=== PATIENT | female | born 1940 | race African-American/Black ===

== ENCOUNTER 2017-01-17 17:05 | Inpatient (IN) | payer MEDICARE, OTHER ==
[~2017-01-17] VITALS: Ht 167.6 cm; Wt 60.9 kg
[~2017-01-17 17:05] MED LIST: AMIT100T2 PO; AMLO10TA80 PO; CAPT100T2 PO; GABA-290 PO; GABA-531 PO; HYDR-2510 PO; HYDR-4134 PO; INSULIN; PARI1CAP PO; POTA-9 PO; PRAV40TA58 PO
[2017-01-17 18:51] LABS: BASOPHILS % 0.9 % (0.0-2.0); EOSINOPHILS % 1.4 % (0.0-5.0); HEMATOCRIT. 38.2 % (36.0-48.0); HEMOGLOBIN. 12.6 g/dL (12.0-16.0); MEAN CORPUSCULAR HEMOGLOBIN 29.7 pg (28.0-32.0); MEAN PLATELET VOLUME 9.8 fl (7.4-10.4); MONOCYTES % 10.4 % (2.0-8.0); NEUTROPHILS % 74.3 % (40.0-76.0); PLATELET 124 x1000/uL (130-400); RED BLOOD CELL COUNT 4.24 mill/uL (4.2-5.4); RED CELL DISTRIBUTION WIDTH 16.5 % (11.6-14.6)
[2017-01-17 18:58] LABS: INR 1.2; PARTIAL THROMBOPLASTIN TIME 27.5 sec (23.4-31.0); PROTHROMBIN TIME 12.2 sec (9.4-11.6)
[2017-01-17 19:05] LABS: CREATINE KINASE MB FRACTION 3.7 ng/mL (0.5-3.6); PHOSPHORUS 3.5 mg/dL (2.5-4.9); TROPONIN I 0.1 ng/mL (0.00-0.04)
[2017-01-17] MEDS ORDERED: DEXT 5%/LACTATED RINGERS 1,000 ML IV SCH ×2 (19:55→23:00)
[2017-01-17] MEDS ORDERED: IPRATROPIUM/ALBUTEROL 0.5-3(2.5)MG/3ML NEB INH PRN (20:00)
[2017-01-17] MEDS ORDERED: ONDANSETRON HCL 4MG/2ML VIAL IV PRN (20:00)
[2017-01-17] MEDS ORDERED: NICARDIPINE 50 MG in SODIUM CHLORIDE 0.9% 230 ML IV PRN ×2 (20:00→23:00)
[2017-01-17] MEDS ORDERED: DEXTROSE 50% WATER 50ML SYRINGE IV PRN (20:00)
[2017-01-17] MEDS ORDERED: ACETAMINOPHEN 325MG TABLET PO PRN (20:00)
[2017-01-17] MEDS ORDERED: DIPHENHYDRAMINE 50MG/ML VIAL IV PRN (20:00)
[2017-01-17] MEDS ORDERED: PHENYTOIN SODIUM 500 MG in SODIUM CHLORIDE 0.9% 50 ML IV ONE (20:00)
[2017-01-17] MEDS ORDERED: ONDANSETRON HCL 4MG/2ML VIAL IV ONE (20:30)
[2017-01-17] MEDS ORDERED: MORPHINE SULFATE 2 MG/ML CPJ (NOT FOR IM USE) IV ONE (20:30)
[2017-01-17] MEDS: BLOOD SUGAR DIAGNOSTIC STRIP TEST SCH (21:00)
[2017-01-17 22:25] VITALS: BP 166/73
[2017-01-17 22:45] VITALS: BP 166/73
[2017-01-17 23:00] VITALS: BP 159/75
[2017-01-17 23:15] VITALS: BP 160/67
[2017-01-17 23:30] VITALS: BP 175/71
[2017-01-17 23:45] VITALS: BP 191/87
[2017-01-18] VITALS (93 sets, daily range): BP systolic 109–181; BP diastolic 53–112
[2017-01-18] MEDS: PHENYTOIN SODIUM 100MG/2ML VIAL IV SCH ×3 (00:19→14:00)
[2017-01-18] MEDS: INSULIN LISPRO 100 UNITS/ML SUBCUT SCH ×5 (00:27→21:00)
[2017-01-18] MEDS: NICARDIPINE 50 MG in SODIUM CHLORIDE 0.9% 230 ML IV PRN ×2 (00:52→15:31)
[2017-01-18] MEDS: BLOOD SUGAR DIAGNOSTIC STRIP TEST SCH ×4 (06:30→21:00)
[2017-01-18] MEDS: MORPHINE SULFATE 4 MG/ML CPJ (NOT FOR IM USE) IV PRN ×2 (08:35→12:49)
[2017-01-18] MEDS ORDERED: PANTOPRAZOLE SODIUM 40 MG/VIAL IV SCH (09:00)
[2017-01-18] MEDS: LISINOPRIL 40MG TABLET PO SCH (16:57)
[2017-01-18] MEDS: AMLODIPINE 10MG TABLET PO SCH (16:57)
[2017-01-18] MEDS ORDERED: TRAMADOL 50MG TABLET PO PRN (19:45)
[2017-01-18] MEDS: CLONIDINE 0.1MG TABLET PO PRN (20:39)
[2017-01-18] MEDS ORDERED: HYDROCODONE/APAP 7.5/325MG 1 TAB TABLET PO PRN (21:45)
[2017-01-18] MEDS: HYDRALAZINE HCL 50MG TABLET PO SCH (22:00)
[2017-01-18] MEDS: PHENYTOIN SODIUM EXTENDED 100MG CAPSULE PO SCH (22:00)
[2017-01-19] VITALS (28 sets, daily range): BP systolic 113–166; BP diastolic 47–79
[2017-01-19] MEDS: CLONIDINE 0.1MG TABLET PO PRN (02:16)
[2017-01-19] MEDS: PHENYTOIN SODIUM EXTENDED 100MG CAPSULE PO SCH ×3 (05:38→23:05)
[2017-01-19] MEDS: HYDRALAZINE HCL 50MG TABLET PO SCH ×3 (05:38→23:06)
[2017-01-19] MEDS: BLOOD SUGAR DIAGNOSTIC STRIP TEST SCH ×4 (05:38→21:00)
[2017-01-19 06:02] LABS: BASOPHILS % 0.5 % (0.0-2.0); EOSINOPHILS % 2.1 % (0.0-5.0); HEMATOCRIT. 33.6 % (36.0-48.0); LYMPHOCYTES % 21.6 % (20.0-50.0); MEAN CORPUSCULAR HEMOGLOBIN 29.4 pg (28.0-32.0); MEAN CORPUSCULAR VOLUME 90.1 fL (81.0-99.0); MONOCYTES % 12.3 % (2.0-8.0); NEUTROPHILS % 63.5 % (40.0-76.0); PLATELET 91 x1000/uL (130-400); RED BLOOD CELL COUNT 3.73 mill/uL (4.2-5.4)
[2017-01-19] MEDS: INSULIN LISPRO 100 UNITS/ML SUBCUT SCH ×4 (06:15→21:00)
[2017-01-19 06:48] LABS: PHOSPHORUS 2.2 mg/dL (2.5-4.9)
[2017-01-19] MEDS ORDERED: SORBITOL 70% SOLN 30ML PO PRN (09:00)
[2017-01-19] MEDS: DOCUSATE SODIUM 100MG CAPSULE PO SCH ×2 (09:00→17:35)
[2017-01-19] MEDS: LISINOPRIL 40MG TABLET PO SCH (09:11)
[2017-01-19] MEDS: AMLODIPINE 10MG TABLET PO SCH (09:11)
[2017-01-19] MEDS: PANTOPRAZOLE 40MG DR TABLET PO SCH (10:17)
[2017-01-19] MEDS: ACETAMINOPHEN WITH CODEINE 300/30MG TABLET PO PRN ×2 (10:18→17:36)
[2017-01-20] VITALS: BP 152/51
[2017-01-20] MEDS: MORPHINE SULFATE 4 MG/ML CPJ (NOT FOR IM USE) IV PRN ×4 (01:05→20:29)
[2017-01-20 04:00] VITALS: BP 146/60
[2017-01-20] MEDS: HYDRALAZINE HCL 50MG TABLET PO SCH ×3 (06:00→21:14)
[2017-01-20 06:33] LABS: BASOPHILS % 0.5 % (0.0-2.0); EOSINOPHILS % 2.6 % (0.0-5.0); HEMATOCRIT. 35.7 % (36.0-48.0); HEMOGLOBIN. 11.8 g/dL (12.0-16.0); LYMPHOCYTES % 17.7 % (20.0-50.0); MEAN CORPUSCULAR HEMOGLOBIN 29.6 pg (28.0-32.0); MEAN PLATELET VOLUME 9.2 fl (7.4-10.4); MONOCYTES % 13.8 % (2.0-8.0); NEUTROPHILS % 65.4 % (40.0-76.0); PLATELET 100 x1000/uL (130-400); RED BLOOD CELL COUNT 3.97 mill/uL (4.2-5.4)
[2017-01-20] MEDS: PHENYTOIN SODIUM EXTENDED 100MG CAPSULE PO SCH ×3 (06:51→21:14)
[2017-01-20] MEDS: PANTOPRAZOLE 40MG DR TABLET PO SCH (06:51)
[2017-01-20] MEDS: BLOOD SUGAR DIAGNOSTIC STRIP TEST SCH ×4 (06:55→20:30)
[2017-01-20] MEDS: INSULIN LISPRO 100 UNITS/ML SUBCUT SCH ×4 (06:56→20:35)
[2017-01-20 07:03] LABS: PHOSPHORUS 2.7 mg/dL (2.5-4.9)
[2017-01-20 08:00] VITALS: BP 163/60
[2017-01-20] MEDS: AMLODIPINE 10MG TABLET PO SCH (08:47)
[2017-01-20] MEDS: LISINOPRIL 40MG TABLET PO SCH (08:47)
[2017-01-20] MEDS: DOCUSATE SODIUM 100MG CAPSULE PO SCH ×2 (08:47→17:03)
[2017-01-20 12:00] VITALS: BP 161/68
[2017-01-20 16:00] VITALS: BP 160/65
[2017-01-20 20:00] VITALS: BP 169/60
[2017-01-21] VITALS: BP 157/56
[2017-01-21 04:00] VITALS: BP 183/70
[2017-01-21 05:44] LABS: HEMATOCRIT. 37.2 % (36.0-48.0); HEMOGLOBIN. 12.3 g/dL (12.0-16.0); MEAN CORPUSCULAR HEMOGLOBIN 29.7 pg (28.0-32.0); MEAN CORPUSCULAR VOLUME 89.5 fL (81.0-99.0); MEAN PLATELET VOLUME 9.9 fl (7.4-10.4); PLATELET 102 x1000/uL (130-400); RED BLOOD CELL COUNT 4.16 mill/uL (4.2-5.4)
[2017-01-21] MEDS: PHENYTOIN SODIUM EXTENDED 100MG CAPSULE PO SCH ×3 (06:41→16:48)
[2017-01-21] MEDS: CLONIDINE 0.1MG TABLET PO PRN (06:48)
[2017-01-21] MEDS: HYDRALAZINE HCL 50MG TABLET PO SCH ×2 (06:48→14:00)
[2017-01-21] MEDS: BLOOD SUGAR DIAGNOSTIC STRIP TEST SCH ×2 (06:49→12:18)
[2017-01-21 06:57] LABS: PHOSPHORUS 2.3 mg/dL (2.5-4.9)
[2017-01-21] MEDS: INSULIN LISPRO 100 UNITS/ML SUBCUT SCH ×2 (07:50→12:31)
[2017-01-21 08:00] VITALS: BP 153/57
[2017-01-21] MEDS: DOCUSATE SODIUM 100MG CAPSULE PO SCH (08:36)
[2017-01-21] MEDS: AMLODIPINE 10MG TABLET PO SCH (08:36)
[2017-01-21] MEDS: LISINOPRIL 40MG TABLET PO SCH (08:36)
[2017-01-21] MEDS ORDERED: FAMOTIDINE 20MG TABLET PO SCH (09:00)
[2017-01-21 10:44] LABS: PLATELET ESTIMATE DECREASED
[2017-01-21 12:00] VITALS: BP 152/60
[2017-01-21 15:15] VITALS: BP 137/52
[2017-01-21 16:00] VITALS: BP 152/61
== END 2017-01-21 17:00 | disposition home or self-care (01) | DRG 85 ==
LOC: SUPCPDRO 19:54 → ER 20:15 → ENRESERV 21:06 → MICUSO 22:25 → 6EST 01-19 14:26
PROVIDERS: ADMIT Internal Medicine; ATTEND Internal Medicine
PROC: 5A1D60Z (ICD-10-PCS; principal; 2017-01-18)
DX: S06.350A Traumatic hemorrhage of left cerebrum without loss of consciousness, initial encounter (principal); J96.01 Acute respiratory failure with hypoxia; J90 Pleural effusion, not elsewhere classified; N25.81 Secondary hyperparathyroidism of renal origin; N18.6 End stage renal disease; I12.0 Hypertensive chronic kidney disease with stage 5 chronic kidney disease or end stage renal disease; M48.02 Spinal stenosis, cervical region; E11.22 Type 2 diabetes mellitus with diabetic chronic kidney disease; E11.42 Type 2 diabetes mellitus with diabetic polyneuropathy; S06.300A Unspecified focal traumatic brain injury without loss of consciousness, initial encounter; W01.0XXA Fall on same level from slipping, tripping and stumbling without subsequent striking against object, initial encounter; S00.03XA Contusion of scalp, initial encounter; D64.9 Anemia, unspecified; R40.2410 Glasgow coma scale score 13-15, unspecified time; R23.3 Spontaneous ecchymoses; E04.2 Nontoxic multinodular goiter; E11.65 Type 2 diabetes mellitus with hyperglycemia; E78.00 Pure hypercholesterolemia, unspecified; E78.5 Hyperlipidemia, unspecified; Z79.899 Other long term (current) drug therapy; Z99.2 Dependence on renal dialysis; Z90.710 Acquired absence of both cervix and uterus; Z90.49 Acquired absence of other specified parts of digestive tract; Z79.4 Long term (current) use of insulin; Y93.89 Activity, other specified; Y92.89 Other specified places as the place of occurrence of the external cause; Y99.8 Other external cause status; Z79.82 Long term (current) use of aspirin
CPT/HCPCS: 36415; 70450; 71010; 72125; 73502; 80048; 80061; 82553; 82962; 83036; 83735; 84100; 84484; 85025; 85610; 85730; 93005; 93970; 96374; 96375; 97116; 97162; 99291; C1893; C9113; J1165; J1815; J2270; J2405; J3490; J7030; J7040; J7050

== ENCOUNTER 2020-06-25 22:42 | Inpatient (IN) | payer OTHER ==
[~2020-06-25] VITALS: Ht 162.6 cm; Wt 75.0 kg
[~2020-06-25 22:42] MED LIST changes: -GABA-531 PO; +GABA-532 PO; -HYDR-2510 PO; +HYDR50TA PO
[2020-06-25] MEDS ORDERED: MORPHINE SULFATE 4 MG/ML CPJ (NOT FOR IM USE) IV STA (23:37)
[2020-06-25] MEDS ORDERED: ONDANSETRON HCL 4MG/2ML INJ IV STA (23:37)
[2020-06-25 23:52] LABS: BASOPHILS % 0.8 % (0.0-2.0); EOSINOPHILS % 0.2 % (0.0-5.0); HEMATOCRIT. 31.3 % (36.0-48.0); HEMOGLOBIN. 9.9 g/dL (12.0-16.0); LYMPHOCYTES % 9.9 % (20.0-50.0); MEAN CORPUSCULAR HEMOGLOBIN 29.7 pg (28.0-32.0); MEAN CORPUSCULAR VOLUME 93.6 fL (81.0-99.0); MEAN PLATELET VOLUME 9.9 fl (7.4-10.4); MONOCYTES % 8.7 % (2.0-8.0); NEUTROPHILS % 80.4 % (40.0-76.0); PLATELET 232 x1000/uL (130-400); RED BLOOD CELL COUNT 3.35 mill/uL (4.2-5.4); RED CELL DISTRIBUTION WIDTH 18.7 % (11.6-14.6)
[2020-06-25 23:54] LABS: CHLORIDE 100 mEq/L (98-107)
[2020-06-26] MEDS ORDERED: CALCIUM CHLORIDE 1GM/10ML SYR IV SCH (00:30)
[2020-06-26] MEDS ORDERED: INSULIN REGULAR (HUMULIN R) 300UNITS/3ML VIAL IV SCH (00:30)
[2020-06-26] MEDS ORDERED: SODIUM BICARBONATE 8.4% 1 MEQ/ML 50ML SYR IV SCH (00:30)
[2020-06-26] MEDS ORDERED: DEXTROSE 50% WATER 50ML SYRINGE IV SCH (00:30)
[2020-06-26] MEDS ORDERED: DEXTROSE 50% WATER 50ML SYRINGE IV PRN (09:00)
[2020-06-26] MEDS: BLOOD SUGAR DIAGNOSTIC STRIP TEST SCH ×4 (09:00→21:00)
[2020-06-26] MEDS ORDERED: ONDANSETRON HCL 4MG/2ML INJ IV PRN (09:00)
[2020-06-26] MEDS ORDERED: ACETAMINOPHEN 325MG TABLET PO PRN (09:00)
[2020-06-26 10:30] VITALS: BP 142/62
[2020-06-26] MEDS: NIFEDIPINE XL 60MG TAB PO SCH (11:00)
[2020-06-26 12:00] VITALS: BP 207/81
[2020-06-26] MEDS: INSULIN LISPRO 100 UNITS/ML SUBCUT SCH ×3 (12:50→22:06)
[2020-06-26] MEDS ORDERED: HYDRALAZINE HCL 100MG TABLET PO ONE (13:45)
[2020-06-26] MEDS ORDERED: BENZONATATE 100MG CAPSULE PO PRN (14:00)
[2020-06-26] MEDS: HYDRALAZINE HCL 100MG TABLET PO SCH ×2 (14:23→22:00)
[2020-06-26] MEDS: METOCLOPRAMIDE HCL 10MG/2ML VIAL IV SCH ×2 (17:41→23:44)
[2020-06-26] MEDS ORDERED: HYDROCODONE/ACETAMINOPHEN 5/325MG TABLET PO PRN (19:45)
[2020-06-26 20:58] LABS: INR 1.2; PARTIAL THROMBOPLASTIN TIME 24.5 sec (23.4-31.0); PROTHROMBIN TIME 12.4 sec (9.6-11.0)
[2020-06-27] VITALS (7 sets, daily range): BP systolic 123–161; BP diastolic 57–89
[2020-06-27] MEDS: METOCLOPRAMIDE HCL 10MG/2ML VIAL IV SCH ×4 (06:05→23:26)
[2020-06-27] MEDS: HYDRALAZINE HCL 100MG TABLET PO SCH ×3 (06:05→21:33)
[2020-06-27] MEDS: BLOOD SUGAR DIAGNOSTIC STRIP TEST SCH ×4 (06:05→21:32)
[2020-06-27] MEDS: INSULIN LISPRO 100 UNITS/ML SUBCUT SCH ×4 (07:27→21:42)
[2020-06-27 07:54] LABS: BASOPHILS % 0.3 % (0.0-2.0); EOSINOPHILS % 0.4 % (0.0-5.0); HEMATOCRIT. 27.2 % (36.0-48.0); HEMOGLOBIN. 8.8 g/dL (12.0-16.0); LYMPHOCYTES % 7.3 % (20.0-50.0); MEAN CORPUSCULAR HEMOGLOBIN 29.8 pg (28.0-32.0); MEAN CORPUSCULAR VOLUME 92.2 fL (81.0-99.0); MEAN PLATELET VOLUME 8.7 fl (7.4-10.4); MONOCYTES % 9.2 % (2.0-8.0); NEUTROPHILS % 82.8 % (40.0-76.0); PLATELET 161 x1000/uL (130-400); RED BLOOD CELL COUNT 2.95 mill/uL (4.2-5.4); RED CELL DISTRIBUTION WIDTH 18.7 % (11.6-14.6)
[2020-06-27] MEDS: NIFEDIPINE XL 60MG TAB PO SCH (08:10)
[2020-06-27 08:22] LABS: PHOSPHORUS 3.3 mg/dL (2.5-4.9)
[2020-06-27] MEDS: NICOTINE 14MG PATCH TD SCH ×2 (09:00→09:10)
[2020-06-27] MEDS: RISPERIDONE 0.5MG TABLET PO SCH (12:24)
[2020-06-27] MEDS: LORAZEPAM 2MG/ML CPJ IV PRN ×2 (12:25→21:33)
[2020-06-27] MEDS ORDERED: IPRATROPIUM/ALBUTEROL 0.5-3(2.5)MG/3ML NEB HHN PRN (16:15)
[2020-06-27] MEDS ORDERED: EPOETIN ALFA-EPBX 4,000 UNIT/ML VIAL SUBCUT SCH (21:00)
[2020-06-28] VITALS (7 sets, daily range): BP systolic 20–157; BP diastolic 50–139
[2020-06-28] MEDS: METOCLOPRAMIDE HCL 10MG/2ML VIAL IV SCH (05:36)
[2020-06-28] MEDS: HYDRALAZINE HCL 100MG TABLET PO SCH ×3 (05:36→20:57)
[2020-06-28] MEDS: BLOOD SUGAR DIAGNOSTIC STRIP TEST SCH ×4 (05:36→20:37)
[2020-06-28] MEDS: INSULIN LISPRO 100 UNITS/ML SUBCUT SCH ×4 (05:38→20:37)
[2020-06-28] MEDS: NIFEDIPINE XL 60MG TAB PO SCH (08:27)
[2020-06-28] MEDS: RISPERIDONE 0.5MG TABLET PO SCH (08:27)
[2020-06-28] MEDS: LORAZEPAM 2MG/ML CPJ IV PRN (08:27)
[2020-06-28] MEDS: NICOTINE 14MG PATCH TD SCH (08:28)
[2020-06-28 09:06] LABS: CHLORIDE 101 mEq/L (98-107)
[2020-06-28 09:11] LABS: PHOSPHORUS 3.3 mg/dL (2.5-4.9)
[2020-06-28 09:58] LABS: BASOPHILS % 0.3 % (0.0-2.0); EOSINOPHILS % 0.3 % (0.0-5.0); HEMATOCRIT. 28.3 % (36.0-48.0); HEMOGLOBIN. 9.1 g/dL (12.0-16.0); LYMPHOCYTES % 8.4 % (20.0-50.0); MEAN CORPUSCULAR HEMOGLOBIN 29.9 pg (28.0-32.0); MEAN CORPUSCULAR VOLUME 93.3 fL (81.0-99.0); MEAN PLATELET VOLUME 8.7 fl (7.4-10.4); MONOCYTES % 7.6 % (2.0-8.0); NEUTROPHILS % 83.4 % (40.0-76.0); PLATELET 165 x1000/uL (130-400); RED BLOOD CELL COUNT 3.03 mill/uL (4.2-5.4); RED CELL DISTRIBUTION WIDTH 19.4 % (11.6-14.6)
[2020-06-28] MEDS ORDERED: LORAZEPAM 1MG TABLET PO PRN (11:45)
[2020-06-28] MEDS: METOCLOPRAMIDE HCL 5MG TABLET PO SCH ×2 (12:08→17:09)
== END 2020-06-29 00:10 | disposition home or self-care (01) | DRG 640 ==
LOC: ER 22:42 → 7WST 06-26 00:46 → ENRESERV 06-26 07:58 → 5WST 06-27 08:32
PROVIDERS: ADMIT Internal Medicine; ATTEND Internal Medicine
PROC: 5A1D70Z Performance of Urinary Filtration, Intermittent, Less than 6 Hours Per Day (ICD-10-PCS; 2020-06-26)
PROC: 5A1D70Z Performance of Urinary Filtration, Intermittent, Less than 6 Hours Per Day (ICD-10-PCS; principal; 2020-06-27)
PROC: 5A1D70Z Performance of Urinary Filtration, Intermittent, Less than 6 Hours Per Day (ICD-10-PCS; 2020-06-28)
DX: E87.5 Hyperkalemia (principal); J96.90 Respiratory failure, unspecified, unspecified whether with hypoxia or hypercapnia; N18.6 End stage renal disease; R18.8 Other ascites; I13.2 Hypertensive heart and chronic kidney disease with heart failure and with stage 5 chronic kidney disease, or end stage renal disease; E44.0 Moderate protein-calorie malnutrition; E87.70 Fluid overload, unspecified; E87.1 Hypo-osmolality and hyponatremia; E87.2 Acidosis; E11.22 Type 2 diabetes mellitus with diabetic chronic kidney disease; I50.9 Heart failure, unspecified; N20.0 Calculus of kidney; K21.9 Gastro-esophageal reflux disease without esophagitis; D64.9 Anemia, unspecified; R77.8 Other specified abnormalities of plasma proteins; E11.42 Type 2 diabetes mellitus with diabetic polyneuropathy; Z20.822 Contact with and (suspected) exposure to COVID-19; Z79.899 Other long term (current) drug therapy; Z68.28 Body mass index [BMI] 28.0-28.9, adult; Z90.710 Acquired absence of both cervix and uterus; Z91.15 Patient's noncompliance with renal dialysis; Z91.19 Patient's noncompliance with other medical treatment and regimen; Z99.2 Dependence on renal dialysis; Z87.442 Personal history of urinary calculi; Z82.49 Family history of ischemic heart disease and other diseases of the circulatory system
CPT/HCPCS: 36415; 71045; 74176; 76705; 80048; 80053; 82962; 83605; 83880; 84100; 84145; 84484; 85025; 93005; 99291; C1893; J0885; J1815; J2060; J2270; J2405; J2765; J3490; J8597; U0003

== ENCOUNTER 2020-07-02 09:25 | Inpatient (IN) | payer OTHER ==
[~2020-07-02] VITALS: Ht 152.4 cm; Wt 68.9 kg
[~2020-07-02 09:25] MED LIST changes: -HYDR50TA PO; -INSULIN; -POTA-9 PO
[2020-07-02 10:16] LABS: HEMATOCRIT. 28.4 % (36.0-48.0); HEMOGLOBIN. 9.1 g/dL (12.0-16.0); MEAN CORPUSCULAR HEMOGLOBIN 29.3 pg (28.0-32.0); MEAN CORPUSCULAR VOLUME 91.9 fL (81.0-99.0); MEAN PLATELET VOLUME 9.1 fl (7.4-10.4); PLATELET 138 x1000/uL (130-400); RED BLOOD CELL COUNT 3.09 mill/uL (4.2-5.4); RED CELL DISTRIBUTION WIDTH 18.7 % (11.6-14.6)
[2020-07-02 10:23] LABS: CHLORIDE 96 mEq/L (98-107)
[2020-07-02 10:42] LABS: INR 1.2; PROTHROMBIN TIME 12.7 sec (9.6-11.0)
[2020-07-02] MEDS ORDERED: DEXTROSE 50% WATER 50ML SYRINGE IV ONE (11:00)
[2020-07-02] MEDS ORDERED: ALBUTEROL (0.083%) 2.5MG/3ML NEB HHN ONE (11:00)
[2020-07-02] MEDS ORDERED: CALCIUM CHLORIDE 1GM/10ML SYR IV ONE (11:00)
[2020-07-02] MEDS ORDERED: SODIUM BICARBONATE 8.4% 1 MEQ/ML 50ML SYR IV ONE (11:00)
[2020-07-02] MEDS ORDERED: INSULIN REGULAR (HUMULIN R) 300UNITS/3ML VIAL IV ONE (11:00)
[2020-07-02 11:24] LABS: PLATELET ESTIMATE NORMAL
[2020-07-02] MEDS ORDERED: AMLODIPINE 10MG TABLET PO ONE (11:45)
[2020-07-02] MEDS ORDERED: VANCOMYCIN 1 G PREMIX 200 ML IV ONE (11:45)
[2020-07-02] MEDS ORDERED: PIPERACILLIN/TAZ 3.375G PREMIX 50 ML IV ONE (11:45)
[2020-07-02] MEDS ORDERED: PIPERACILLIN/TAZ 3.375G PREMIX 50 ML IV SCH (12:30)
[2020-07-02] MEDS ORDERED: DOCUSATE SODIUM 100MG CAPSULE PO PRN (12:30)
[2020-07-02] MEDS ORDERED: ACETAMINOPHEN 325MG TABLET PO PRN (12:30)
[2020-07-02] MEDS ORDERED: MAGNESIUM/ALUMINUM HYDROXIDE/SIMETHICONE 30ML UDC PO PRN (12:30)
[2020-07-02] MEDS ORDERED: IPRATROPIUM/ALBUTEROL 0.5-3(2.5)MG/3ML NEB NEB PRN (12:30)
[2020-07-02] MEDS ORDERED: NITROGLYCERIN 0.4MG TABLET SL SL PRN (12:30)
[2020-07-02] MEDS ORDERED: TRAMADOL 50MG TABLET PO PRN (12:30)
[2020-07-02] MEDS ORDERED: AMLODIPINE 10MG TABLET PO SCH (12:30)
[2020-07-02 12:59] LABS: CLARITY URINE CLEAR (CLEAR); COLOR URINE ORANGE (YELLOW); KETONES URINE TRACE (NEGATIVE); LEUKOCYTE ESTERASE URINE TRACE (NEGATIVE); NITRITE URINE NEGATIVE (NEGATIVE); OCCULT BLOOD URINE 3+ (NEGATIVE); PH URINE 8.5 (4.5-8.0); PROTEIN URINE NEGATIVE (NEGATIVE); SPECIFIC GRAVITY URINE 1.007 (1.005-1.030)
[2020-07-02] MEDS ORDERED: SEVELAMER CARBONATE 800 MG TABLET PO SCH (13:00)
[2020-07-02] MEDS ORDERED: SODIUM POLYSTYRENE SULFONATE 15 G/60 ML BOT PO NR (13:00)
[2020-07-02] MEDS: ENOXAPARIN 30MG/0.3ML SYR SUBCUT SCH (13:49)
[2020-07-02] MEDS: HYDRALAZINE HCL 50MG TABLET PO SCH ×2 (13:50→21:00)
[2020-07-02] MEDS ORDERED: AMIT100T2 PO (15:57)
[2020-07-02] MEDS ORDERED: PRAV40TA58 PO (15:57)
[2020-07-02] MEDS ORDERED: CAPT100T2 PO (15:57)
[2020-07-02] MEDS ORDERED: AMLO10TA80 PO (15:57)
[2020-07-02] MEDS ORDERED: HYDR-4134 PO (15:57)
[2020-07-02] MEDS ORDERED: GABA-532 PO (15:57)
[2020-07-02] MEDS ORDERED: PARI1CAP3 PO (15:57)
[2020-07-02] MEDS ORDERED: HALOPERIDOL LACTATE 5MG/ML VIAL IM NR (16:27)
[2020-07-02 17:00] VITALS: BP_SYST 185; BP_SYST 196; BP_DIAS 74; BP_DIAS 87
[2020-07-02] MEDS: CLONIDINE 0.1MG TABLET PO PRN (17:20)
[2020-07-02] MEDS: NICOTINE 14MG PATCH TD SCH (17:33)
[2020-07-02] MEDS: METOCLOPRAMIDE HCL 5MG TABLET PO SCH ×2 (17:34→22:26)
[2020-07-02] MEDS: BLOOD SUGAR DIAGNOSTIC STRIP TEST SCH ×3 (17:36→21:00)
[2020-07-02] MEDS: MORPHINE SULFATE 2 MG/ML CPJ (NOT FOR IM USE) IV PRN (17:50)
[2020-07-02] MEDS: INSULIN LISPRO 100 UNITS/ML SUBCUT SCH ×3 (17:57→21:00)
[2020-07-02 20:00] VITALS: BP 178/68
[2020-07-02] MEDS: ONDANSETRON HCL 4MG/2ML INJ IV PRN (20:24)
[2020-07-02] MEDS: ZOLPIDEM TARTRATE 5MG TABLET PO PRN (20:24)
[2020-07-02] MEDS: DIPHENHYDRAMINE 50MG/ML VIAL IV PRN (20:24)
[2020-07-02] MEDS: FAMOTIDINE 20MG TABLET PO SCH (21:00)
[2020-07-02] MEDS ORDERED: METOPROLOL TARTRATE 25MG TABLET PO SCH (21:00)
[2020-07-02 21:31] LABS: CREATINE KINASE MB FRACTION 3.5 ng/mL (0.5-3.6)
[2020-07-02 22:00] VITALS: BP 146/88
[2020-07-02] MEDS ORDERED: INSULIN GLARGINE UD 100 UNITS/ML SYR SUBCUT SCH (22:00)
[2020-07-02] MEDS: EPOETIN ALFA-EPBX 4,000 UNIT/ML VIAL SUBCUT SCH (22:26)
[2020-07-02] MEDS: ASCORBIC ACID 500 MG TABLET PO SCH (22:26)
[2020-07-02] MEDS: PIPERACILLIN/TAZOBACTAM 2.25 G in DEXTROSE 5% WATER 50 ML IV SCH (23:11)
[2020-07-03] VITALS (58 sets, daily range): BP systolic 71–200; BP diastolic 40–109
[2020-07-03] MEDS: DIPHENHYDRAMINE 50MG/ML VIAL IV PRN (00:43)
[2020-07-03 01:29] LABS: CREATINE KINASE MB FRACTION 2.1 ng/mL (0.5-3.6)
[2020-07-03] MEDS: ONDANSETRON HCL 4MG/2ML INJ IV PRN (02:05)
[2020-07-03] MEDS: MORPHINE SULFATE 2 MG/ML CPJ (NOT FOR IM USE) IV PRN ×4 (02:06→08:21)
[2020-07-03] MEDS ORDERED: EPINEPHRINE 0.1MG/ML (1:10,000) 10ML SYR ONE (02:20)
[2020-07-03] MEDS ORDERED: SODIUM BICARBONATE 8.4% 1 MEQ/ML 50ML SYR IV ONE (02:20)
[2020-07-03] MEDS ORDERED: CALCIUM CHLORIDE 1GM/10ML SYR IV ONE (02:20)
[2020-07-03] MEDS ORDERED: DEXTROSE 50% WATER 50ML SYRINGE IV ONE (02:20)
[2020-07-03 03:50] LABS: BG BASE EXCESS 1.1 mmol/L (-2.0-2.0); BG CARBOXYHEMOGLOBIN 0.1 % (0.5-1.5); BG DEOXYHEMOGLOBIN 0.6 % (0.0-5.0); BG FRACTION INSPIRED OXYGEN 100; BG HCO3 ACT 26.9 mmol/L (22.0-26.0); BG METHEMOGLOBIN 0.1 % (0.0-1.5); BG OXYGEN SATURATION 99.4 % (92.0-98.5); BG OXYHEMOGLOBIN 99.2 % (94.0-97.0); BG PCO2 48.2 mmHg (35.0-45.0); BG PH 7.364 (7.350-7.450); BG PO2 262.9 mmHg (75.0-100.0); BG SAMPLE SITE RIGHT RADIAL; BG TOTAL HEMOGLOBIN 10.4 g/dL (12.0-18.0); BG VENT MODE VENT - AC
[2020-07-03] MEDS: NOREPINEPHRINE 8 MG in DEXT 5% WATER 242 ML IV PRN ×2 (04:40→04:44)
[2020-07-03] MEDS: PROPOFOL 10MG/ML 100ML 100 ML IV PRN (04:43)
[2020-07-03] MEDS: HYDRALAZINE HCL 50MG TABLET PO SCH (06:00)
[2020-07-03] MEDS: PIPERACILLIN/TAZOBACTAM 2.25 G in DEXTROSE 5% WATER 50 ML IV SCH ×3 (06:45→19:35)
[2020-07-03 07:21] LABS: HEMATOCRIT. 26.8 % (36.0-48.0); HEMOGLOBIN. 8.5 g/dL (12.0-16.0); MEAN CORPUSCULAR HEMOGLOBIN 28.8 pg (28.0-32.0); MEAN CORPUSCULAR VOLUME 90.8 fL (81.0-99.0); MEAN PLATELET VOLUME 8.9 fl (7.4-10.4); PLATELET 130 x1000/uL (130-400); RED BLOOD CELL COUNT 2.95 mill/uL (4.2-5.4); RED CELL DISTRIBUTION WIDTH 18.3 % (11.6-14.6)
[2020-07-03 07:29] LABS: CHLORIDE 100 mEq/L (98-107)
[2020-07-03 07:37] LABS: PHOSPHORUS 4.1 mg/dL (2.5-4.9)
[2020-07-03] MEDS: INSULIN LISPRO 100 UNITS/ML SUBCUT SCH ×4 (08:00→21:00)
[2020-07-03] MEDS: DEXTROSE 50% WATER 50ML SYRINGE IV PRN ×3 (08:04→21:14)
[2020-07-03] MEDS: METOCLOPRAMIDE HCL 5MG TABLET PO SCH ×4 (08:08→21:14)
[2020-07-03] MEDS: CHOLECALCIFEROL (D3) 1000 UNIT TABLET PO SCH (08:08)
[2020-07-03] MEDS: NICOTINE 14MG PATCH TD SCH (08:08)
[2020-07-03] MEDS: BLOOD SUGAR DIAGNOSTIC STRIP TEST SCH ×4 (08:09→21:13)
[2020-07-03] MEDS: ENOXAPARIN 30MG/0.3ML SYR SUBCUT SCH (08:21)
[2020-07-03] MEDS: ASCORBIC ACID 500 MG TABLET PO SCH ×2 (08:21→21:14)
[2020-07-03] MEDS ORDERED: NIFEDIPINE XL 60MG TAB PO SCH (09:00)
[2020-07-03] MEDS ORDERED: ZINC SULFATE 220 MG ( 50 ) CAPSULE PO SCH (09:00)
[2020-07-03 09:54] LABS: BG BASE EXCESS 0.1 mmol/L (-2.0-2.0); BG CARBOXYHEMOGLOBIN 0.7 % (0.5-1.5); BG DEOXYHEMOGLOBIN 10.3 % (0.0-5.0); BG FRACTION INSPIRED OXYGEN 50; BG HCO3 ACT 24.6 mmol/L (22.0-26.0); BG METHEMOGLOBIN 0.3 % (0.0-1.5); BG OXYGEN SATURATION 89.6 % (92.0-98.5); BG OXYHEMOGLOBIN 88.7 % (94.0-97.0); BG PCO2 38.9 mmHg (35.0-45.0); BG PH 7.418 (7.350-7.450); BG PO2 61.2 mmHg (75.0-100.0); BG SAMPLE SITE RIGHT RADIAL; BG VENT MODE VENT - AC
[2020-07-03] MEDS ORDERED: VANCOMYCIN 1 G PREMIX 200 ML IV SCH (10:00)
[2020-07-03] MEDS ORDERED: DEXT 10%/0.9% NACL 1,000 ML IV SCH (11:00)
[2020-07-03] MEDS: SODIUM CHLORIDE 23.4% 154 MEQ in DEXT 10% WATER 1,000 ML IV SCH (13:05)
[2020-07-03 13:07] LABS: NUCLEATED RED BLOOD CELLS 1 /100 WBC; PLATELET ESTIMATE NORMAL
[2020-07-03] MEDS: FAMOTIDINE 20MG TABLET PO SCH (21:14)
[2020-07-03] MEDS ORDERED: FENTANYL CITRATE/PF 2,500 MCG in SODIUM CHLORIDE 0.9% 200 ML IV PRN (22:15)
[2020-07-04] VITALS (44 sets, daily range): BP systolic 113–201; BP diastolic 47–156
[2020-07-04] MEDS: PROPOFOL 10MG/ML 100ML 100 ML IV PRN (02:49)
[2020-07-04] MEDS: PIPERACILLIN/TAZOBACTAM 2.25 G in DEXTROSE 5% WATER 50 ML IV SCH ×3 (04:44→18:28)
[2020-07-04 06:03] LABS: CHLORIDE 99 mEq/L (98-107)
[2020-07-04 06:11] LABS: PHOSPHORUS 3.9 mg/dL (2.5-4.9)
[2020-07-04 06:15] LABS: HEMATOCRIT. 23.6 % (36.0-48.0); HEMOGLOBIN. 7.7 g/dL (12.0-16.0); MEAN CORPUSCULAR HEMOGLOBIN 29.5 pg (28.0-32.0); MEAN CORPUSCULAR VOLUME 90.1 fL (81.0-99.0); MEAN PLATELET VOLUME 9.3 fl (7.4-10.4); PLATELET 128 x1000/uL (130-400); RED BLOOD CELL COUNT 2.62 mill/uL (4.2-5.4); RED CELL DISTRIBUTION WIDTH 18.1 % (11.6-14.6)
[2020-07-04] MEDS: BLOOD SUGAR DIAGNOSTIC STRIP TEST SCH ×4 (06:38→21:16)
[2020-07-04] MEDS: METOCLOPRAMIDE HCL 5MG TABLET PO SCH ×4 (06:42→21:11)
[2020-07-04] MEDS: DEXTROSE 50% WATER 50ML SYRINGE IV PRN (06:49)
[2020-07-04] MEDS: INSULIN LISPRO 100 UNITS/ML SUBCUT SCH ×4 (08:00→21:00)
[2020-07-04] MEDS: ASCORBIC ACID 500 MG TABLET PO SCH ×2 (08:54→21:09)
[2020-07-04] MEDS: CHOLECALCIFEROL (D3) 1000 UNIT TABLET PO SCH (08:54)
[2020-07-04] MEDS: NICOTINE 14MG PATCH TD SCH (08:55)
[2020-07-04] MEDS: ENOXAPARIN 30MG/0.3ML SYR SUBCUT SCH (09:04)
[2020-07-04 10:12] LABS: BG BASE EXCESS 3.8 mmol/L (-2.0-2.0); BG CARBOXYHEMOGLOBIN 0.8 % (0.5-1.5); BG DEOXYHEMOGLOBIN 1.2 % (0.0-5.0); BG FRACTION INSPIRED OXYGEN 50; BG HCO3 ACT 28.3 mmol/L (22.0-26.0); BG METHEMOGLOBIN 0.3 % (0.0-1.5); BG OXYGEN SATURATION 98.8 % (92.0-98.5); BG OXYHEMOGLOBIN 97.7 % (94.0-97.0); BG PCO2 42.5 mmHg (35.0-45.0); BG PH 7.441 (7.350-7.450); BG SAMPLE SITE RIGHT RADIAL; BG TOTAL HEMOGLOBIN 8.7 g/dL (12.0-18.0); BG VENT MODE VENT - AC
[2020-07-04 12:10] LABS: NUCLEATED RED BLOOD CELLS 1 /100 WBC
[2020-07-04 12:11] LABS: PLATELET ESTIMATE SLIGHTLY DECREASED
[2020-07-04] MEDS ORDERED: MAGNESIUM 2 G PREMIX 50 ML IV NR (14:00)
[2020-07-04] MEDS: FAMOTIDINE 20MG TABLET PO SCH (21:10)
[2020-07-04] MEDS: EPOETIN ALFA-EPBX 4,000 UNIT/ML VIAL SUBCUT SCH (21:17)
[2020-07-04] MEDS: SODIUM CHLORIDE 23.4% 154 MEQ in DEXT 10% WATER 1,000 ML IV SCH (21:26)
[2020-07-05] VITALS (50 sets, daily range): BP systolic 87–164; BP diastolic 54–78
[2020-07-05] MEDS: PIPERACILLIN/TAZOBACTAM 2.25 G in DEXTROSE 5% WATER 50 ML IV SCH ×3 (04:16→18:13)
[2020-07-05 07:17] LABS: BASOPHILS % 0.3 % (0.0-2.0); EOSINOPHILS % 0.6 % (0.0-5.0); HEMATOCRIT. 21.7 % (36.0-48.0); HEMOGLOBIN. 7.1 g/dL (12.0-16.0); LYMPHOCYTES % 10.8 % (20.0-50.0); MEAN CORPUSCULAR HEMOGLOBIN 29.4 pg (28.0-32.0); MEAN CORPUSCULAR VOLUME 89.7 fL (81.0-99.0); MEAN PLATELET VOLUME 8.9 fl (7.4-10.4); MONOCYTES % 13.3 % (2.0-8.0); PLATELET 161 x1000/uL (130-400); RED BLOOD CELL COUNT 2.42 mill/uL (4.2-5.4); RED CELL DISTRIBUTION WIDTH 18.2 % (11.6-14.6)
[2020-07-05 07:27] LABS: CHLORIDE 100 mEq/L (98-107)
[2020-07-05] MEDS: ENOXAPARIN 30MG/0.3ML SYR SUBCUT SCH (08:17)
[2020-07-05] MEDS: BLOOD SUGAR DIAGNOSTIC STRIP TEST SCH ×4 (08:17→21:26)
[2020-07-05] MEDS: ASCORBIC ACID 500 MG TABLET PO SCH ×2 (08:17→21:38)
[2020-07-05] MEDS: METOCLOPRAMIDE HCL 5MG TABLET PO SCH ×4 (08:17→21:38)
[2020-07-05] MEDS: CHOLECALCIFEROL (D3) 1000 UNIT TABLET PO SCH (08:17)
[2020-07-05] MEDS: NICOTINE 14MG PATCH TD SCH (08:17)
[2020-07-05] MEDS: INSULIN LISPRO 100 UNITS/ML SUBCUT SCH ×4 (08:25→21:29)
[2020-07-05 08:38] LABS: BG CARBOXYHEMOGLOBIN 0.9 % (0.5-1.5); BG DEOXYHEMOGLOBIN 3.2 % (0.0-5.0); BG HCO3 ACT 28.3 mmol/L (22.0-26.0); BG METHEMOGLOBIN 0.3 % (0.0-1.5); BG OXYGEN SATURATION 96.8 % (92.0-98.5); BG OXYHEMOGLOBIN 95.6 % (94.0-97.0); BG PCO2 41.8 mmHg (35.0-45.0); BG PH 7.449 (7.350-7.450); BG PO2 89.5 mmHg (75.0-100.0); BG SAMPLE SITE RIGHT RADIAL; BG VENT MODE VENT - AC
[2020-07-05 11:33] LABS: BG CARBOXYHEMOGLOBIN 0.2 % (0.5-1.5); BG DEOXYHEMOGLOBIN 3.7 % (0.0-5.0); BG HCO3 ACT 26.2 mmol/L (22.0-26.0); BG METHEMOGLOBIN 0.1 % (0.0-1.5); BG OXYGEN SATURATION 96.3 % (92.0-98.5); BG PCO2 44.5 mmHg (35.0-45.0); BG PH 7.388 (7.350-7.450); BG PO2 91.9 mmHg (75.0-100.0); BG SAMPLE SITE RIGHT RADIAL; BG TOTAL HEMOGLOBIN 10.2 g/dL (12.0-18.0); BG VENT MODE VENT - CPAP
[2020-07-05] MEDS ORDERED: VANCOMYCIN 1 G PREMIX 200 ML IV SCH (15:00)
[2020-07-05] MEDS: FAMOTIDINE 20MG TABLET PO SCH (21:38)
[2020-07-06] VITALS (28 sets, daily range): BP systolic 139–183; BP diastolic 54–98
[2020-07-06] MEDS: PIPERACILLIN/TAZOBACTAM 2.25 G in DEXTROSE 5% WATER 50 ML IV SCH ×3 (03:26→21:39)
[2020-07-06] MEDS: MORPHINE SULFATE 2 MG/ML CPJ (NOT FOR IM USE) IV PRN ×3 (03:36→17:29)
[2020-07-06] MEDS: SODIUM CHLORIDE 23.4% 154 MEQ in DEXT 10% WATER 1,000 ML IV SCH (03:39)
[2020-07-06] MEDS: METOCLOPRAMIDE HCL 5MG TABLET PO SCH ×4 (07:45→21:34)
[2020-07-06] MEDS: BLOOD SUGAR DIAGNOSTIC STRIP TEST SCH ×4 (07:45→21:34)
[2020-07-06] MEDS: INSULIN LISPRO 100 UNITS/ML SUBCUT SCH ×4 (07:48→21:00)
[2020-07-06] MEDS: ENOXAPARIN 30MG/0.3ML SYR SUBCUT SCH (08:05)
[2020-07-06] MEDS: CHOLECALCIFEROL (D3) 1000 UNIT TABLET PO SCH (08:05)
[2020-07-06] MEDS: NICOTINE 14MG PATCH TD SCH (08:06)
[2020-07-06] MEDS: ASCORBIC ACID 500 MG TABLET PO SCH ×2 (08:06→21:34)
[2020-07-06 09:19] LABS: HEMATOCRIT. 22.2 % (36.0-48.0); MEAN CORPUSCULAR VOLUME 91.2 fL (81.0-99.0); MEAN PLATELET VOLUME 8.5 fl (7.4-10.4); PLATELET 181 x1000/uL (130-400); RED BLOOD CELL COUNT 2.43 mill/uL (4.2-5.4); RED CELL DISTRIBUTION WIDTH 18.3 % (11.6-14.6)
[2020-07-06 11:43] LABS: PLATELET ESTIMATE NORMAL
[2020-07-06] MEDS: DEXTROSE 50% WATER 50ML SYRINGE IV PRN (12:32)
[2020-07-06] MEDS: CLONIDINE 0.1MG TABLET PO PRN (21:33)
[2020-07-06] MEDS: ZOLPIDEM TARTRATE 5MG TABLET PO PRN (21:34)
[2020-07-06] MEDS: FAMOTIDINE 20MG TABLET PO SCH (21:34)
[2020-07-06] MEDS: DIPHENHYDRAMINE 50MG/ML VIAL IV PRN (21:47)
[2020-07-07] VITALS: BP 150/60
[2020-07-07] MEDS: PIPERACILLIN/TAZOBACTAM 2.25 G in DEXTROSE 5% WATER 50 ML IV SCH ×2 (03:27→12:10)
[2020-07-07 04:00] VITALS: BP 145/70
[2020-07-07] MEDS: BLOOD SUGAR DIAGNOSTIC STRIP TEST SCH ×4 (06:11→20:17)
[2020-07-07] MEDS: INSULIN LISPRO 100 UNITS/ML SUBCUT SCH ×4 (06:11→20:20)
[2020-07-07] MEDS: METOCLOPRAMIDE HCL 5MG TABLET PO SCH ×4 (06:11→20:16)
[2020-07-07 08:00] VITALS: BP 170/54
[2020-07-07] MEDS: ASCORBIC ACID 500 MG TABLET PO SCH ×2 (09:33→20:18)
[2020-07-07] MEDS: CHOLECALCIFEROL (D3) 1000 UNIT TABLET PO SCH (09:33)
[2020-07-07] MEDS: ENOXAPARIN 30MG/0.3ML SYR SUBCUT SCH (09:33)
[2020-07-07] MEDS: NICOTINE 14MG PATCH TD SCH (09:34)
[2020-07-07 12:00] VITALS: BP 180/67
[2020-07-07 12:03] LABS: BASOPHILS % 0.7 % (0.0-2.0); EOSINOPHILS % 1.3 % (0.0-5.0); HEMATOCRIT. 23.4 % (36.0-48.0); HEMOGLOBIN. 7.6 g/dL (12.0-16.0); LYMPHOCYTES % 8.3 % (20.0-50.0); MEAN CORPUSCULAR VOLUME 89.7 fL (81.0-99.0); MEAN PLATELET VOLUME 8.1 fl (7.4-10.4); NEUTROPHILS % 80.7 % (40.0-76.0); PLATELET 214 x1000/uL (130-400); RED BLOOD CELL COUNT 2.61 mill/uL (4.2-5.4); RED CELL DISTRIBUTION WIDTH 17.8 % (11.6-14.6)
[2020-07-07] MEDS: CLONIDINE 0.1MG TABLET PO PRN ×2 (12:10→17:28)
[2020-07-07 12:17] LABS: PHOSPHORUS 4.3 mg/dL (2.5-4.9)
[2020-07-07] MEDS: ACETAMINOPHEN 325MG TABLET PO PRN ×2 (12:45→20:16)
[2020-07-07 17:26] VITALS: BP 190/88
[2020-07-07] MEDS: GUAIFENESIN 200MG/10ML SUGAR FREE UDC PO PRN (17:28)
[2020-07-07 20:00] VITALS: BP 150/60
[2020-07-07] MEDS: FAMOTIDINE 20MG TABLET PO SCH (20:16)
[2020-07-08] VITALS: BP 186/93
[2020-07-08] MEDS: TRAMADOL 50MG TABLET PO PRN ×2 (00:20→20:18)
[2020-07-08] MEDS: EPOETIN ALFA-EPBX 4,000 UNIT/ML VIAL SUBCUT SCH (02:01)
[2020-07-08] MEDS: ACETAMINOPHEN 325MG TABLET PO PRN (02:39)
[2020-07-08 04:00] VITALS: BP 151/86
[2020-07-08] MEDS: INSULIN LISPRO 100 UNITS/ML SUBCUT SCH ×4 (05:38→20:20)
[2020-07-08] MEDS: BLOOD SUGAR DIAGNOSTIC STRIP TEST SCH ×4 (05:38→20:19)
[2020-07-08 08:00] VITALS: BP 180/66
[2020-07-08] MEDS: CHOLECALCIFEROL (D3) 1000 UNIT TABLET PO SCH (09:18)
[2020-07-08] MEDS: NICOTINE 14MG PATCH TD SCH (09:18)
[2020-07-08] MEDS: ASCORBIC ACID 500 MG TABLET PO SCH (09:18)
[2020-07-08] MEDS: METOCLOPRAMIDE HCL 5MG TABLET PO SCH ×4 (09:18→20:18)
[2020-07-08] MEDS: ENOXAPARIN 30MG/0.3ML SYR SUBCUT SCH (09:19)
[2020-07-08] MEDS: CLONIDINE 0.1MG TABLET PO PRN (09:19)
[2020-07-08 10:11] LABS: BASOPHILS % 1.1 % (0.0-2.0); EOSINOPHILS % 1.9 % (0.0-5.0); HEMATOCRIT. 22.8 % (36.0-48.0); HEMOGLOBIN. 7.4 g/dL (12.0-16.0); LYMPHOCYTES % 7.3 % (20.0-50.0); MEAN CORPUSCULAR HEMOGLOBIN 28.8 pg (28.0-32.0); MEAN CORPUSCULAR VOLUME 89.4 fL (81.0-99.0); MEAN PLATELET VOLUME 8.6 fl (7.4-10.4); MONOCYTES % 10.1 % (2.0-8.0); NEUTROPHILS % 79.6 % (40.0-76.0); PLATELET 238 x1000/uL (130-400); RED BLOOD CELL COUNT 2.55 mill/uL (4.2-5.4); RED CELL DISTRIBUTION WIDTH 18.5 % (11.6-14.6)
[2020-07-08 12:00] VITALS: BP 152/63
[2020-07-08] MEDS ORDERED: CEFAZOLIN 1000MG PREMIX 50 ML IV SCH (12:00)
[2020-07-08] MEDS: NIFEDIPINE XL 60MG TAB PO SCH (12:25)
[2020-07-08 16:00] VITALS: BP 136/51
[2020-07-08 20:00] VITALS: BP 165/52
[2020-07-08] MEDS: FAMOTIDINE 20MG TABLET PO SCH (20:17)
[2020-07-08] MEDS: CEFAZOLIN 1000MG PREMIX 50 ML IV SCH (20:18)
[2020-07-08] MEDS: DIPHENHYDRAMINE 50MG/ML VIAL IV PRN (20:18)
[2020-07-08] MEDS ORDERED: CEFAZOLIN 2000MG in DEXTROSE 5% WATER 100ML IV SCH (21:00)
[2020-07-08] MEDS: GUAIFENESIN-DM 200MG-20MG/10ML UDC PO PRN (22:50)
[2020-07-09] VITALS (9 sets, daily range): BP systolic 132–177; BP diastolic 59–79
[2020-07-09] MEDS: TRAMADOL 50MG TABLET PO PRN ×3 (04:21→20:44)
[2020-07-09] MEDS: INSULIN LISPRO 100 UNITS/ML SUBCUT SCH ×4 (05:26→20:45)
[2020-07-09] MEDS: BLOOD SUGAR DIAGNOSTIC STRIP TEST SCH ×4 (05:26→20:44)
[2020-07-09 06:49] LABS: BASOPHILS % 0.6 % (0.0-2.0); EOSINOPHILS % 1.7 % (0.0-5.0); LYMPHOCYTES % 7.6 % (20.0-50.0); MEAN CORPUSCULAR HEMOGLOBIN 28.9 pg (28.0-32.0); MEAN CORPUSCULAR VOLUME 89.9 fL (81.0-99.0); MEAN PLATELET VOLUME 8.2 fl (7.4-10.4); MONOCYTES % 12.3 % (2.0-8.0); NEUTROPHILS % 77.8 % (40.0-76.0); PLATELET 207 x1000/uL (130-400); RED CELL DISTRIBUTION WIDTH 18.2 % (11.6-14.6)
[2020-07-09 07:25] LABS: HEMATOCRIT. 16.2 % (36.0-48.0); HEMOGLOBIN. 5.2 g/dL (12.0-16.0)
[2020-07-09] MEDS: ASCORBIC ACID 500 MG TABLET PO SCH (08:42)
[2020-07-09] MEDS: NICOTINE 14MG PATCH TD SCH (08:42)
[2020-07-09] MEDS: METOCLOPRAMIDE HCL 5MG TABLET PO SCH ×4 (08:42→20:43)
[2020-07-09] MEDS: CHOLECALCIFEROL (D3) 1000 UNIT TABLET PO SCH (08:43)
[2020-07-09] MEDS: NIFEDIPINE XL 60MG TAB PO SCH (08:43)
[2020-07-09] MEDS: ENOXAPARIN 30MG/0.3ML SYR SUBCUT SCH ×2 (08:43→09:00)
[2020-07-09] MEDS: CEFAZOLIN 1000MG PREMIX 50 ML IV SCH ×2 (09:13→20:44)
[2020-07-09 09:44] LABS: BASOPHILS % 0.5 % (0.0-2.0); EOSINOPHILS % 1.6 % (0.0-5.0); HEMATOCRIT. 22.7 % (36.0-48.0); LYMPHOCYTES % 8.5 % (20.0-50.0); MEAN CORPUSCULAR HEMOGLOBIN 29.1 pg (28.0-32.0); MEAN CORPUSCULAR VOLUME 89.2 fL (81.0-99.0); MEAN PLATELET VOLUME 8.1 fl (7.4-10.4); MONOCYTES % 11.7 % (2.0-8.0); NEUTROPHILS % 77.7 % (40.0-76.0); PLATELET 298 x1000/uL (130-400); RED BLOOD CELL COUNT 2.54 mill/uL (4.2-5.4); RED CELL DISTRIBUTION WIDTH 18.2 % (11.6-14.6)
[2020-07-09 10:37] LABS: HEMOGLOBIN. 7.4 g/dL (12.0-16.0)
[2020-07-09] MEDS: CLONIDINE 0.1MG TABLET PO PRN (13:51)
[2020-07-09 15:51] LABS: PHOSPHORUS 4.1 mg/dL (2.5-4.9)
[2020-07-09] MEDS ORDERED: VANCOMYCIN 1 G PREMIX 200 ML IV SCH (17:00)
[2020-07-09] MEDS: FAMOTIDINE 20MG TABLET PO SCH (20:43)
[2020-07-09] MEDS: GUAIFENESIN 200MG/10ML SUGAR FREE UDC PO PRN (21:26)
[2020-07-10] VITALS: BP 142/66
[2020-07-10] MEDS: GUAIFENESIN 200MG/10ML SUGAR FREE UDC PO PRN (03:58)
[2020-07-10] MEDS: TRAMADOL 50MG TABLET PO PRN ×3 (03:59→21:16)
[2020-07-10 04:00] VITALS: BP 165/73
[2020-07-10] MEDS: DEXTROSE 50% WATER 50ML SYRINGE IV PRN (05:16)
[2020-07-10] MEDS: BLOOD SUGAR DIAGNOSTIC STRIP TEST SCH ×4 (05:16→21:11)
[2020-07-10] MEDS: INSULIN LISPRO 100 UNITS/ML SUBCUT SCH ×4 (05:16→21:00)
[2020-07-10 08:00] VITALS: BP 169/94
[2020-07-10 09:21] LABS: HEMATOCRIT. 26.6 % (36.0-48.0); HEMOGLOBIN. 8.8 g/dL (12.0-16.0); MEAN CORPUSCULAR HEMOGLOBIN 29.5 pg (28.0-32.0); MEAN PLATELET VOLUME 8.3 fl (7.4-10.4); PLATELET 257 x1000/uL (130-400); RED BLOOD CELL COUNT 2.99 mill/uL (4.2-5.4); RED CELL DISTRIBUTION WIDTH 17.7 % (11.6-14.6)
[2020-07-10 09:32] LABS: PHOSPHORUS 2.7 mg/dL (2.5-4.9)
[2020-07-10] MEDS: CHOLECALCIFEROL (D3) 1000 UNIT TABLET PO SCH (10:46)
[2020-07-10] MEDS: ASCORBIC ACID 500 MG TABLET PO SCH (10:47)
[2020-07-10] MEDS: METOCLOPRAMIDE HCL 5MG TABLET PO SCH ×4 (10:47→21:10)
[2020-07-10] MEDS: ENOXAPARIN 30MG/0.3ML SYR SUBCUT SCH (10:48)
[2020-07-10] MEDS: NICOTINE 14MG PATCH TD SCH (10:48)
[2020-07-10] MEDS: NIFEDIPINE XL 60MG TAB PO SCH (10:58)
[2020-07-10] MEDS: CEFAZOLIN 1000MG PREMIX 50 ML IV SCH (10:59)
[2020-07-10] MEDS: CLONIDINE 0.1MG TABLET PO PRN (10:59)
[2020-07-10 12:00] VITALS: BP 143/91
[2020-07-10 14:03] LABS: PLATELET ESTIMATE NORMAL
[2020-07-10 16:00] VITALS: BP 148/61
[2020-07-10] MEDS ORDERED: VANCOMYCIN 1 G PREMIX 200 ML IV NR (18:00)
[2020-07-10 20:00] VITALS: BP 160/100
[2020-07-10] MEDS: EPOETIN ALFA-EPBX 10,000 UNIT/ML VIAL SUBCUT SCH (21:10)
[2020-07-10] MEDS: FAMOTIDINE 20MG TABLET PO SCH (21:10)
[2020-07-11] VITALS: BP 150/68
[2020-07-11 04:00] VITALS: BP 145/69
[2020-07-11] MEDS: BLOOD SUGAR DIAGNOSTIC STRIP TEST SCH ×4 (05:12→20:24)
[2020-07-11] MEDS: INSULIN LISPRO 100 UNITS/ML SUBCUT SCH ×4 (05:12→20:23)
[2020-07-11 08:00] VITALS: BP 110/61
[2020-07-11] MEDS: ASCORBIC ACID 500 MG TABLET PO SCH (08:56)
[2020-07-11] MEDS: CHOLECALCIFEROL (D3) 1000 UNIT TABLET PO SCH (08:56)
[2020-07-11] MEDS: METOCLOPRAMIDE HCL 5MG TABLET PO SCH ×4 (08:57→20:23)
[2020-07-11] MEDS: NIFEDIPINE XL 60MG TAB PO SCH (09:02)
[2020-07-11] MEDS: ENOXAPARIN 30MG/0.3ML SYR SUBCUT SCH (09:04)
[2020-07-11] MEDS: NICOTINE 14MG PATCH TD SCH (09:04)
[2020-07-11] MEDS: TRAMADOL 50MG TABLET PO PRN ×2 (09:12→17:14)
[2020-07-11 12:00] VITALS: BP 146/85
[2020-07-11 16:00] VITALS: BP 136/79
[2020-07-11 20:00] VITALS: BP 150/89
[2020-07-11] MEDS: FAMOTIDINE 20MG TABLET PO SCH (20:23)
[2020-07-11] MEDS: GUAIFENESIN-DM 200MG-20MG/10ML UDC PO PRN (22:48)
[2020-07-12] VITALS: BP 152/99
[2020-07-12] MEDS: TRAMADOL 50MG TABLET PO PRN ×3 (02:27→20:45)
[2020-07-12 04:00] VITALS: BP 155/66
[2020-07-12] MEDS: BLOOD SUGAR DIAGNOSTIC STRIP TEST SCH ×4 (05:38→21:23)
[2020-07-12] MEDS: INSULIN LISPRO 100 UNITS/ML SUBCUT SCH ×4 (05:38→21:00)
[2020-07-12 06:14] LABS: HEMATOCRIT. 24.8 % (36.0-48.0); HEMOGLOBIN. 8.2 g/dL (12.0-16.0); MEAN CORPUSCULAR HEMOGLOBIN 29.6 pg (28.0-32.0); MEAN CORPUSCULAR VOLUME 89.4 fL (81.0-99.0); PLATELET 236 x1000/uL (130-400); RED BLOOD CELL COUNT 2.77 mill/uL (4.2-5.4); RED CELL DISTRIBUTION WIDTH 18.4 % (11.6-14.6)
[2020-07-12 07:08] LABS: PHOSPHORUS 4.6 mg/dL (2.5-4.9)
[2020-07-12 08:00] VITALS: BP_SYST 193; BP_SYST 213; BP_DIAS 80; BP_DIAS 86
[2020-07-12] MEDS: ASCORBIC ACID 500 MG TABLET PO SCH (08:49)
[2020-07-12] MEDS: CHOLECALCIFEROL (D3) 1000 UNIT TABLET PO SCH (08:49)
[2020-07-12] MEDS: METOCLOPRAMIDE HCL 5MG TABLET PO SCH ×4 (08:55→20:44)
[2020-07-12] MEDS: ENOXAPARIN 30MG/0.3ML SYR SUBCUT SCH (08:55)
[2020-07-12] MEDS: NIFEDIPINE XL 60MG TAB PO SCH (08:56)
[2020-07-12] MEDS: NICOTINE 14MG PATCH TD SCH (09:00)
[2020-07-12 12:00] VITALS: BP 195/77
[2020-07-12] MEDS ORDERED: VANCOMYCIN 750 MG PREMIX 150 ML IV NR (12:00)
[2020-07-12] MEDS: CLONIDINE 0.1MG TABLET PO PRN (12:07)
[2020-07-12 16:00] VITALS: BP 171/64
[2020-07-12] MEDS: DAPTOMYCIN 650 MG in SODIUM CHLORIDE 0.9% 50 ML IV SCH (18:12)
[2020-07-12 18:59] LABS: PLATELET ESTIMATE NORMAL
[2020-07-12 20:00] VITALS: BP 159/86
[2020-07-12] MEDS: FAMOTIDINE 20MG TABLET PO SCH (20:44)
[2020-07-12] MEDS: EPOETIN ALFA-EPBX 10,000 UNIT/ML VIAL SUBCUT SCH (20:46)
[2020-07-12] MEDS: DIPHENHYDRAMINE 50MG/ML VIAL IV PRN (21:38)
[2020-07-13] VITALS: BP 148/81
[2020-07-13 04:00] VITALS: BP 146/79
[2020-07-13] MEDS: BLOOD SUGAR DIAGNOSTIC STRIP TEST SCH ×4 (06:33→21:00)
[2020-07-13] MEDS: METOCLOPRAMIDE HCL 5MG TABLET PO SCH ×4 (06:34→21:38)
[2020-07-13 06:39] LABS: HEMATOCRIT. 26.5 % (36.0-48.0); HEMOGLOBIN. 8.2 g/dL (12.0-16.0); MEAN CORPUSCULAR HEMOGLOBIN 28.6 pg (28.0-32.0); MEAN CORPUSCULAR VOLUME 92.3 fL (81.0-99.0); MEAN PLATELET VOLUME 8.1 fl (7.4-10.4); PLATELET 233 x1000/uL (130-400); RED BLOOD CELL COUNT 2.88 mill/uL (4.2-5.4); RED CELL DISTRIBUTION WIDTH 18.5 % (11.6-14.6)
[2020-07-13] MEDS: INSULIN LISPRO 100 UNITS/ML SUBCUT SCH ×4 (07:06→21:00)
[2020-07-13 07:21] LABS: PHOSPHORUS 5.1 mg/dL (2.5-4.9)
[2020-07-13] MEDS: CHOLECALCIFEROL (D3) 1000 UNIT TABLET PO SCH (09:01)
[2020-07-13] MEDS: NIFEDIPINE XL 60MG TAB PO SCH (09:01)
[2020-07-13] MEDS: ASCORBIC ACID 500 MG TABLET PO SCH (09:01)
[2020-07-13] MEDS: NICOTINE 14MG PATCH TD SCH (09:02)
[2020-07-13] MEDS: ENOXAPARIN 30MG/0.3ML SYR SUBCUT SCH (09:02)
[2020-07-13 12:00] VITALS: BP_SYST 141; BP_SYST 152; BP_DIAS 73; BP_DIAS 85
[2020-07-13 13:01] VITALS: BP 152/73
[2020-07-13 16:00] VITALS: BP 151/75
[2020-07-13 18:41] LABS: PLATELET ESTIMATE NORMAL
[2020-07-13 20:00] VITALS: BP 160/79
[2020-07-13] MEDS: FAMOTIDINE 20MG TABLET PO SCH (21:37)
[2020-07-14] VITALS (7 sets, daily range): BP systolic 146–172; BP diastolic 63–100
[2020-07-14] MEDS: ACETAMINOPHEN 325MG TABLET PO PRN ×2 (04:19→13:59)
[2020-07-14] MEDS: METOCLOPRAMIDE HCL 5MG TABLET PO SCH ×4 (06:43→20:18)
[2020-07-14] MEDS: BLOOD SUGAR DIAGNOSTIC STRIP TEST SCH ×4 (07:10→20:19)
[2020-07-14] MEDS: INSULIN LISPRO 100 UNITS/ML SUBCUT SCH ×4 (07:40→20:20)
[2020-07-14] MEDS ORDERED: LIDOCAINE HCL 1% 20ML VIAL (Pyxis) INJ ONE (08:15)
[2020-07-14] MEDS: ENOXAPARIN 30MG/0.3ML SYR SUBCUT SCH ×2 (09:00→10:25)
[2020-07-14] MEDS: ASCORBIC ACID 500 MG TABLET PO SCH (10:24)
[2020-07-14] MEDS: CHOLECALCIFEROL (D3) 1000 UNIT TABLET PO SCH (10:24)
[2020-07-14] MEDS: NICOTINE 14MG PATCH TD SCH (10:24)
[2020-07-14] MEDS: NIFEDIPINE XL 60MG TAB PO SCH (10:24)
[2020-07-14] MEDS: HYDRALAZINE HCL 25MG TABLET PO SCH ×2 (13:52→20:18)
[2020-07-14 16:38] LABS: HEMATOCRIT. 25.9 % (36.0-48.0); HEMOGLOBIN. 8.2 g/dL (12.0-16.0); MEAN CORPUSCULAR HEMOGLOBIN 28.9 pg (28.0-32.0); MEAN CORPUSCULAR VOLUME 91.2 fL (81.0-99.0); MEAN PLATELET VOLUME 8.7 fl (7.4-10.4); PLATELET 256 x1000/uL (130-400); RED BLOOD CELL COUNT 2.84 mill/uL (4.2-5.4); RED CELL DISTRIBUTION WIDTH 18.9 % (11.6-14.6)
[2020-07-14] MEDS: DAPTOMYCIN 650 MG in SODIUM CHLORIDE 0.9% 50 ML IV SCH (16:47)
[2020-07-14 16:55] LABS: PHOSPHORUS 4.7 mg/dL (2.5-4.9)
[2020-07-14 16:57] LABS: PLATELET ESTIMATE NORMAL
[2020-07-14] MEDS: FAMOTIDINE 20MG TABLET PO SCH (20:19)
[2020-07-14] MEDS: GUAIFENESIN-DM 200MG-20MG/10ML UDC PO PRN (20:23)
[2020-07-14] MEDS: DIPHENHYDRAMINE 50MG/ML VIAL IV PRN (22:32)
[2020-07-15] VITALS (7 sets, daily range): BP systolic 141–192; BP diastolic 59–93
[2020-07-15] MEDS: HYDRALAZINE HCL 25MG TABLET PO SCH ×3 (05:39→21:06)
[2020-07-15] MEDS: METOCLOPRAMIDE HCL 5MG TABLET PO SCH ×4 (05:39→21:06)
[2020-07-15] MEDS: DEXTROSE 50% WATER 50ML SYRINGE IV PRN (05:47)
[2020-07-15] MEDS: BLOOD SUGAR DIAGNOSTIC STRIP TEST SCH ×4 (07:10→21:09)
[2020-07-15] MEDS: INSULIN LISPRO 100 UNITS/ML SUBCUT SCH ×4 (07:40→21:09)
[2020-07-15] MEDS: ACETAMINOPHEN 325MG TABLET PO PRN (09:39)
[2020-07-15] MEDS: CHOLECALCIFEROL (D3) 1000 UNIT TABLET PO SCH (09:40)
[2020-07-15] MEDS: ENOXAPARIN 30MG/0.3ML SYR SUBCUT SCH (09:40)
[2020-07-15] MEDS: NIFEDIPINE XL 60MG TAB PO SCH (09:40)
[2020-07-15] MEDS: ASCORBIC ACID 500 MG TABLET PO SCH (09:40)
[2020-07-15] MEDS: NICOTINE 14MG PATCH TD SCH (09:41)
[2020-07-15] MEDS: CLONIDINE 0.1MG TABLET PO PRN (20:38)
[2020-07-15] MEDS: FAMOTIDINE 20MG TABLET PO SCH (21:06)
[2020-07-15] MEDS: EPOETIN ALFA-EPBX 10,000 UNIT/ML VIAL SUBCUT SCH (21:06)
[2020-07-16] VITALS: BP 136/57
== END 2020-07-16 00:40 | DRG 871 ==
LOC: ER 09:44 → EDBEDREQTM 10:54 → EDBEDREQ 10:54 → EDBEDREQSVC 10:54 → 5EST 12:03 → EDBEDREQTM 12:10 → EDBEDREQ 12:10 → EDBEDREQSVC 12:10 → ENRESERV 16:10 → 5EST 07-03 02:45 → 8WST 07-06 11:29
PROVIDERS: ADMIT Internal Medicine; ATTEND Internal Medicine
PROC: 5A1D70Z Performance of Urinary Filtration, Intermittent, Less than 6 Hours Per Day (ICD-10-PCS; 2020-07-02)
PROC: 5A1945Z Respiratory Ventilation, 24-96 Consecutive Hours (ICD-10-PCS; principal; 2020-07-03)
PROC: 0BH17EZ Insertion of Endotracheal Airway into Trachea, Via Natural or Artificial Opening (ICD-10-PCS; 2020-07-03)
PROC: 5A12012 Performance of Cardiac Output, Single, Manual (ICD-10-PCS; 2020-07-03)
PROC: 02HV33Z Insertion of Infusion Device into Superior Vena Cava, Percutaneous Approach (ICD-10-PCS; 2020-07-03)
PROC: B548ZZA Ultrasonography of Superior Vena Cava, Guidance (ICD-10-PCS; 2020-07-03)
PROC: 5A1D70Z Performance of Urinary Filtration, Intermittent, Less than 6 Hours Per Day (ICD-10-PCS; 2020-07-03)
PROC: 5A1D70Z Performance of Urinary Filtration, Intermittent, Less than 6 Hours Per Day (ICD-10-PCS; 2020-07-05)
PROC: 5A1D70Z Performance of Urinary Filtration, Intermittent, Less than 6 Hours Per Day (ICD-10-PCS; 2020-07-07)
PROC: 5A1D70Z Performance of Urinary Filtration, Intermittent, Less than 6 Hours Per Day (ICD-10-PCS; 2020-07-08)
PROC: 30233N1 Transfusion of Nonautologous Red Blood Cells into Peripheral Vein, Percutaneous Approach (ICD-10-PCS; 2020-07-09)
PROC: 5A1D70Z Performance of Urinary Filtration, Intermittent, Less than 6 Hours Per Day (ICD-10-PCS; 2020-07-10)
PROC: 5A1D70Z Performance of Urinary Filtration, Intermittent, Less than 6 Hours Per Day (ICD-10-PCS; 2020-07-12)
PROC: 5A1D70Z Performance of Urinary Filtration, Intermittent, Less than 6 Hours Per Day (ICD-10-PCS; 2020-07-13)
PROC: 06HY33Z Insertion of Infusion Device into Lower Vein, Percutaneous Approach (ICD-10-PCS; 2020-07-14)
PROC: B54BZZA Ultrasonography of Right Lower Extremity Veins, Guidance (ICD-10-PCS; 2020-07-14)
PROC: 5A1D70Z Performance of Urinary Filtration, Intermittent, Less than 6 Hours Per Day (ICD-10-PCS; 2020-07-15)
DX: A41.01 Sepsis due to Methicillin susceptible Staphylococcus aureus (principal); E43 Unspecified severe protein-calorie malnutrition; G92 Toxic encephalopathy; J18.9 Pneumonia, unspecified organism; I50.33 Acute on chronic diastolic (congestive) heart failure; J96.01 Acute respiratory failure with hypoxia; N18.6 End stage renal disease; I46.9 Cardiac arrest, cause unspecified; E87.1 Hypo-osmolality and hyponatremia; I13.2 Hypertensive heart and chronic kidney disease with heart failure and with stage 5 chronic kidney disease, or end stage renal disease; Z16.21 Resistance to vancomycin; R65.20 Severe sepsis without septic shock; E78.5 Hyperlipidemia, unspecified; E87.5 Hyperkalemia; E11.65 Type 2 diabetes mellitus with hyperglycemia; D63.8 Anemia in other chronic diseases classified elsewhere; E11.22 Type 2 diabetes mellitus with diabetic chronic kidney disease; B95.2 Enterococcus as the cause of diseases classified elsewhere; E11.43 Type 2 diabetes mellitus with diabetic autonomic (poly)neuropathy; E78.00 Pure hypercholesterolemia, unspecified; E83.42 Hypomagnesemia; E11.649 Type 2 diabetes mellitus with hypoglycemia without coma; Z20.822 Contact with and (suspected) exposure to COVID-19; R74.01 Elevation of levels of liver transaminase levels; K31.84 Gastroparesis; N20.0 Calculus of kidney; Z87.891 Personal history of nicotine dependence; M19.90 Unspecified osteoarthritis, unspecified site; Z99.2 Dependence on renal dialysis; Z68.29 Body mass index [BMI] 29.0-29.9, adult
CPT/HCPCS: 36415; 36600; 71045; 72170; 73130; 76937; 78806; 80048; 80053; 80061; 80202; 81003; 82375; 82550; 82553; 82805; 82962; 83036; 83605; 83735; 84100; 84145; 84478; 84484; 85025; 86850; 86900; 86920; 87077; 87186; 87426; 92610; 93005; 93970; 94003; 94640; 97110; 97116; 97162; 97166; 97530; 97535; 99291; A9547; C1725; J0690; J0878; J0885; J1200; J1630; J1650; J1815; J2270; J2405; J2543; J2704; J3010; J3370; J3475; J3490; J7040; J7050; J7060; J7131; J8597; P9016; A4315